=== PATIENT | female | born 1965 | race Caucasian/White ===

== ENCOUNTER 2023-04-10 20:09 | Emergency (ER) | payer OTHER, SELFPAY ==
[2023-04-10 20:58] VITALS: BP 133/86; PULSE 81; RESP 14; TEMP 36.4; O2SAT 100
--- NOTE | 2023-04-10 23:53 | ED.GENADULT ---
HPI - General Adult General Chief complaint: Wound/Laceration Stated complaint: Left index finger lac Time Seen by Provider: 04/10/23 22:12 Source: patient Mode of arrival: ambulatory Limitations: no limitations History of Present Illness HPI narrative: This is a 57-year-old female who presents to the ED with chief complaint of a left index finger laceration that occurred just prior to arrival. Patient was working in the kitchen cutting with a knife and accidentally cut towards herself to the index finger. Reports lot of bleeding at the time but that has since ceased. Denies numbness, weakness or any further sites of pain or injury. Tetanus up-to-date. Related Data Allergies Allergy/AdvReac Type Severity Reaction Status Date / Time Sulfa (Sulfonamide Allergy Mild Unknown Verified 04/10/23 22:10 Antibiotics) Bumble Bee Allergy Intermediate HIVES, Uncoded 04/16/16 19:16 SWELLING Review of Systems Review of Systems: All systems as dictated in HPI Exam Narrative: GENERAL: Well-appearing, well-nourished, and in no acute distress. HEAD: Normocephalic, atraumatic. EYES: PERRLA and EOMI. ENT: Nares clear, no rhinorrhea or epistaxis. Mucous membranes moist. Oropharynx without tonsillar hypertrophy exudate or other lesions. NECK: Supple. No adenopathy or masses. CHEST: No respiratory distress. Clear to auscultation. No wheezes rales or rhonchi HEART: Regular rate and rhythm. No murmur heard. Normal peripheral pulses. ABDOMEN: Soft, nontender, nondistended, normal active bowel sounds. MSK: Normal range of motion. No edema. SKIN: 1 cm superficial laceration to the left index finger, lateral. No current bleeding. Not contaminated. NEURO: Alert and oriented x3. No focal deficits. PSYCH: Normal mood and affect. Course Vital Signs Vital signs: Vital Signs Temperature 97.6 F 04/10/23 20:58 Pulse Rate 81 04/10/23 20:58 Respiratory Rate 14 04/10/23 20:58 Blood Pressure 133/86 04/10/23 20:58 Pulse Oximetry 100 04/10/23 20:58 Oxygen Delivery Room Air 04/10/23 20:58 Temperature 97.6 F 04/10/23 20:58 Pulse Rate 81 04/10/23 20:58 Respiratory Rate 14 04/10/23 20:58 Blood Pressure 133/86 04/10/23 20:58 Pulse Oximetry 100 04/10/23 20:58 Oxygen Delivery Room Air 04/10/23 20:58 Procedures Laceration Laceration 1: Date: 04/10/23 Time: 23:53 Site: hand Side (If applicable): left Size (cm): 1 Description: linear Depth: simple, single layer Local Anesthetic: none Pre-repair: wound explored and irrigated extensively ====== Skin Level ====== Skin layer closed with: dermabond ====== Subcutaneous Layer ====== ====== Muscle Layer ====== ====== Tendon Layer ====== Medical Decision Making MDM Narrative Medical decision making narrative: This is a 57-year-old female who presents to the ED with chief complaint of a laceration to the left index finger. Vitals are normal. Exam shows a very superficial 1 cm laceration to the finger. Bleeding controlled. Wound here in the department and closed with skin glue. Pt will be discharged in stable condition. Return precautions given and supportive measures discussed. Pt is understanding and agreeable with plan for discharge and follow-up with PCP. Vital Signs Vital Signs: Vital Signs Temperature 97.6 F 04/10/23 20:58 Pulse Rate 81 04/10/23 20:58 Respiratory Rate 14 04/10/23 20:58 Blood Pressure 133/86 04/10/23 20:58 Pulse Oximetry 100 04/10/23 20:58 Oxygen Delivery Room Air 04/10/23 20:58 Temperature 97.6 F 04/10/23 20:58 Pulse Rate 81 04/10/23 20:58 Respiratory Rate 14 04/10/23 20:58 Blood Pressure 133/86 04/10/23 20:58 Pulse Oximetry 100 04/10/23 20:58 Oxygen Delivery Room Air 04/10/23 20:58 Discharge Plan Discharge Clinical Impression: Laceration Patient Disposition: H
== END 2023-04-11 00:15 | disposition home or self-care (01) ==
PROVIDERS: Emergency Provider Physician Assistant; PCP Family Medicine
DX: S61.211A Laceration without foreign body of left index finger without damage to nail, initial encounter (principal); W26.0XXA Contact with knife, initial encounter
CPT/HCPCS: 12001; 99282

== ENCOUNTER 2025-02-27 15:00 | Outpatient (CLI) | payer OTHER, SELFPAY ==
--- NOTE | ~2025-02-27 | MM_ITS ---
EXAMINATION: screening [facility] BI w nelly INDICATION: Asymptomatic, referred for screening mammogram COMPARISON: None available TECHNIQUE: Digital Breast Tomosynthesis CC, MLO views of Both breasts were obtained with computer-aided detection to assist in interpretation of the study. FINDINGS: There are scattered areas of fibroglandular density. There is a group of microcalcifications in the outer central right breast at posterior third. In addition, there is a focal asymmetry seen in the inferior lateral right breast at anterior third. Elsewhere, there are no mammographic features of malignancy. IMPRESSION: 1. Right breast Incompletely characterized group of calcifications and focal asymmetry. 2. No evidence of malignancy in the Left breast. RECOMMENDATION: Right breast Diagnostic mammogram with true lateral, appropriate spot compression views and an ultrasound if needed. Diagnostic right mammography with appropriate magnification views. BI-RADS Category 0: Incomplete: Needs additional imaging evaluation. Reviewed, dictated and finalized at location B. IMPRESSION: 1. Right breast Incompletely characterized group of calcifications and focal a symmetry. 2. No evidence of malignancy in the Left breast. RECOMMENDATION: Right breast Diagnostic mammogram with true lateral, appropriate spot compressi on views and an ultrasound if needed. Diagnostic right mammography with appropriate magnification views. BI-RADS Category 0: Incomplete: Needs additional imaging evaluation.
--- OUTSIDE RECORDS SUMMARY | 2025-02-27 19:21 | XMS_ITS | Clinical Summary ---
Author Organization [facility] Address [address] [place] [address] Care Team Providers Care Morning Show Newscast Producer Name Role Phone Cathy Snell MD Unavailable [phone] Landry Gudino MD Primary Care Provider [phone] Source Comments [facility],non-owned Affiliates and Associated Physician Practices is amultiple site organization consisting of ambulatory clinics and hospital sitesin [place], [place], [place] and [place]. This disclosure is being madepursuant to the Care Everywhere program and may not contain all information available regarding this patient. Last updated 18.[facility] Allergies Active Allergy Reactions Criticality Noted Date Comments Sulfa Drugs Unknown 04/08/2009 Medications * Be aware that medications may not be up to date on this document. Alwaysverify current medications with the patient. acyclovir (ZOVIRAX) 400 MG tablet TAKE 1 TABLET BY MOUTH THREE TIMES DAILY FOR 5 DAYS NEEDED FOR SYMPTOMS 15 tablet 3 03/31/2020 Active Active Problems No known active problems Family History Medical History Relation Name Comments Hypertension Father Relation Name Status Comments Father Social History Tobacco Use Types Packs/Day Years Used Date Smoking Tobacco: Never Smokeless Tobacco: Never Alcohol Use Standard Drinks/Week Comments Yes 0 (1 standard drink = 0.6 oz pur e alcohol) Comments No Sex and Gender Information Value Date Recorded Sex Assigned at Not on file Legal Sex Female 6:28 AM SENIOR STORAGE ADMINISTRATOR Gender Identity Not on file Sexual Orientation Not on file Last Filed Vital Signs Vital Sign Reading Time Taken Comments Blood Pressure 128/71 03/31/2020 3:38 PM SENIOR STORAGE ADMINISTRATOR Pulse - - Temperature - - Respiratory Rate - - Oxygen Saturation - - Inhaled Oxygen Concentration - - Weight 66.7 kg (147 lb) 03/31/2020 3:38 PM SENIOR STORAGE ADMINISTRATOR Height 162.6 cm (5' 4) 02/20/2018 4:23 PM CDT Body Mass Index 25.23 02/20/2018 4:23 PM CDT Plan of Treatment Health Maintenance Due Date Last Done Comments COLOGUARD (AGES 45-75) - COLON CA SCREENING 1963 COLON MONITORING 1963 COLONOSCOPY - COLON CA SCREENING 1963 CT COLONOGRAPHY - COLON CA SCREENING 1963 Colorectal Cancer Screening 1963 FIT - COLON CA SCREENING 1963 FLEX SIG - COLON CA SCREENING 1963 LIPID TESTING 1963 HIV SCREENING 11/26/1978 HEPATITIS C SCREENING 11/22/1981 DTAP/TDAP/TD VACCINES (1 - Tdap) 11/26/1982 PNEUMOCOCCAL VACCINE 50+ (1 of 1 - PCV) 11/26/2013 ZOSTER VACCINE (1 of 2) 11/26/2013 MAMMOGRAM 02/21/2020 02/20/2018, 05/0 06/2015, 09/05/2014, Additional history exists DEPRESSION SCREENING 05/09/2024 COVID-19 VACCINE (1 - 2023- season) 2025 INFLUENZA VACCINE (#1) 2025 PAP with HPV 03/31/2025 03/31/2020 Respiratory Syncytial Virus (RSV) Vaccine Pt: or over 60 yrs (1 - 1-dose 75+ series) 11/26/2038 HEPATITIS B VACCINE Aged Out No longe r eligible based on patient's age to complete this topic HIB VACCINE Aged Out No longer eligi ble based on patient's age to complete this topic HPV VACCINE Aged Out No longer eligi ble based on patient's age to complete this topic MENINGOCOCCAL (Group B) VACCINE SHARED DECISION-MAKING Aged Out No longer eligible based on patient's age to complete this topic MENINGOCOCCAL GROUPS A/C/Y/W VACCINE Aged Out No longer eligible based on patient's age to complete this topic Procedures Procedure Name Priority Date/Time Associated Diagnosis Comments HPV DETECTION HIGH RISK SARAH Routine 03/31/2020 4:48 PM SENIOR STORAGE ADMINISTRATOR Well woman exam MAMMO BILAT SCREENING Routine 02/20/2018 3:49 PM CDT Breast cancer screening from Last 3 Months or Most Recently Relevant to Health Maintenance Results * HPV DETECTION HIGH RISK SARAH (03/31/2020 4:48 PM SENIOR STORAGE ADMINISTRATOR) High Risk Human Papilloma Result Not Detected Not Detected 04/07/2020 1:51 PM SENIOR STORAGE ADMINISTRATOR [facility] High Risk Human Papilloma Interp 04/07/2020 1:51 PM SENIOR STORAGE ADMINISTRATOR [facility] Comment:High Risk Human Benjie lloma Virus was Not Detected. Pathology/Cytolo gy MISCELLANEOUS SAMPLES / Unknown 03/31/2020 4:48 PM SENIOR STORAGE ADMINISTRATOR 04/01/2020 11:04 AM SENIOR STORAGE ADMINISTRATOR Narrative [facility] - 04/07/2020 1:51 PM SENIOR STORAGE ADMINISTRATOR Nucleic acid isolated from the specimen was analyzed with a nucleic acid amplification test (FDA approved Gen-Probe HPV Assay) to detect high risk human papilloma virus (Types: 16, 18, 31, 33, 35, 39, 45, 51, 52, 56, 58, 59, 66, and 68). The reference range is Not Detected. Comment: These test results should not be used as the sole basis for clinical assessment and treatment of patients. These results should always be correlated with other available data (cytology, histology, and clinical information). us Quynh Saldivar MD LAB - MICROBIOLOGY O RDERABLES Final Result [facility] [address] [place], [place] [address] [phone] * MAMMO BILAT SCREENING (02/20/2018 3:49 PM CDT) Anatomical Region Laterality Modality Breast Bilateral Mammography 02/21/2018 7:58 AM CDT Impressions 02/21/2018 9:29 AM CDT No mammographic evidence of malignancy in either breast. ASSESSMENT: BIRADS Category 1: Negative mammogram. RECOMMENDATION: Bilateral screening mammogram in one year. Thank you for allowing us to participate in the care of your patient. [facility] utilizes [employer] as a reminder system to notify patients of their next recommended mammogram. I, Roxi Abdi, have personally reviewed the images and I agree with this report. Reading Radiologist: Randa García MD on 02/21/2018 at 9:29 AM Narrative 02/21/2018 9:29 AM CDT EXAMINATION: Digital screening mammogram on 02/20/2018. Low-dose full-field digital breast tomosynthesis examination was performed with synthetic 2D images and 3D acquisitions. Computer assisted detection was utilized. PRIOR: Multiple prior mammograms, most recently 09/08/2015 and 09/05/2014. BREAST PARENCHYMAL DENSITY: There are scattered areas of fibroglandular density. FINDINGS: No suspicious masses, areas of architectural distortion or microcalcifications are evident on synthetic 2D mammogram or tomosynthesis images. There has been no significant interval change since the prior examination. Quynh Saldivar MD MAMMO ORDERABLES Fin al Result from Last 3 Months or Most Recently Relevant to Health Maintenance Insurance [place] [address] [facility] Care Teams Morning Show Newscast Producer Relationship Specialty Start Date End Date Cathy Snell MD [address] [place] [address] PCP - OBGYN Obstetrics and Gynecology 05/23/12 Landry Gudino MD [address] [place] [address] PCP - General Family Medicine 05/23/12
== END 2025-02-27 15:01 | disposition home or self-care (01) ==
LOC: ANHFOHIMG 15:02
PROVIDERS: PCP Family Medicine
DX: Z12.31 Encounter for screening mammogram for malignant neoplasm of breast (principal); R92.8 Other abnormal and inconclusive findings on diagnostic imaging of breast
CPT/HCPCS: 77063; 77067

== ENCOUNTER 2025-02-28 02:11 | Day surgery (SDC) | payer OTHER, SELFPAY ==
[2025-02-20 09:04] VITALS: BMI 25.3
--- OUTSIDE RECORDS SUMMARY | 2025-02-28 02:14 | XMS_ITS | Clinical Summary ---
Author Organization [facility] Address [address] [place] [address] Care Team Providers Care Lead Systems Developer Name Role Phone Cathy Snell MD Unavailable [phone] Landry Gudino MD Primary Care Provider [phone] [facility],non-owned Affiliates and Associated Physician Practices is amultiple site organization consisting of ambulatory clinics and hospital sitesin [place], [place], [place] and [place]. This disclosure is being madepursuant to the Care Everywhere program and may not contain all information available regarding this patient. Last updated 18.[facility] Allergies Active Allergy Reactions Criticality Noted Date [...] on file Legal Sex Female 6:28 AM EDGE CUTTER Gender Identity Not on file Sexual Orientation Not on file Last Filed Vital Signs Vital Sign Reading Time Taken Comments Blood Pressure 128/71 03/31/2020 3:38 PM EDGE CUTTER Pulse - - Temperature - - Respiratory Rate - - Oxygen Saturation - - Inhaled Oxygen Concentration - - Weight 66.7 kg (147 lb) 03/31/2020 3:38 PM EDGE CUTTER Height 162.6 cm (5' 4) 02/20/2018 4:23 [...] HIGH RISK SARAH Routine 03/31/2020 4:48 PM EDGE CUTTER Well woman exam MAMMO BILAT SCREENING Routine 02/20/2018 3:49 PM CDT Breast cancer screening from Last 3 Months or Most Recently Relevant to Health Maintenance Results * HPV DETECTION HIGH RISK SARAH (03/31/2020 4:48 PM EDGE CUTTER) High Risk Human Papilloma Result Not Detected Not Detected 04/07/2020 1:51 PM EDGE CUTTER [facility] High Risk Human Papilloma Interp 04/07/2020 1:51 PM EDGE CUTTER [facility] Comment:High Risk Human Benjie lloma Virus was Not Detected. Pathology/Cytolo gy MISCELLANEOUS SAMPLES / Unknown 03/31/2020 4:48 PM EDGE CUTTER 04/01/2020 11:04 AM EDGE CUTTER Narrative [facility] - 04/07/2020 1:51 PM EDGE CUTTER Nucleic acid isolated from the specimen was [...] LAB - MICROBIOLOGY O RDERABLES Final Result [facility] [address] [place], [place] [address] [phone] * MAMMO BILAT SCREENING (02/20/2018 3:49 PM CDT) Anatomical Region Laterality Modality Breast Bilateral Mammography 02/21/2018 7:58 AM CDT Impressions 02/21/2018 9:29 AM CDT No mammographic evidence of malignancy in either breast. ASSESSMENT: BIRADS Category 1: Negative mammogram. RECOMMENDATION: Bilateral screening mammogram in one year. Thank you for allowing us to participate in the care of your patient. [facility] utilizes [employer] as a reminder system to notify patients [...] to Health Maintenance [place] [address] [facility] Care Teams Lead Systems Developer Relationship Specialty Start Date End Date Cathy Snell MD [address] [place] [address] PCP - OBGYN Obstetrics and Gynecology 05/23/12 Landry Gudino MD [address] [place] [address] PCP - General Family Medicine 05/23/12
--- OUTSIDE RECORDS SUMMARY | 2025-02-28 02:14 | XMS_ITS | Data Portability ---
Author Organization [employer], [facility] Address [address] [place] [id number] Care Team Providers Care Dispatcher Service Name Role Phone MELIA WAGGONER Primary Care Provider Unavailabl e Assessment No assessment recorded. Plan of Treatment Reminders Order Date Submit Date Provider Last Modified By Organization Details Last Modified Time Details Appointments None record ed. Lab None record ed. Referral None record ed. Procedures None record ed. Surgeries None record ed. Imaging None record ed. Medication Orders None record ed. Patient TargetsNo targets recorded. Patient InstructionsNo instructions recorded. Reason for Referral None Reported. Problems No Known Problems Medical Equipment None Reported. Allergies Allergen ID Allergen Name Allergen Category Reaction Reaction Severity Criticality Documentation Date Start Date Code Code System Note Provider Name and Address Organization Details Recorded Time 65714 Substance with sulfonami de structure and antibacte rial mechanism of action (substanc e) medicatio n Not available Not available Not available 03/25/2020 [id number] [id number] SNOMED Cory kurtz [employer] 0 10:40:11 Medications Name Sig Start Date Stop Date Status Note LastModified by Organization Details LastModified Time neomycin-polym yxin-hydrocort 3.5 mg/mL-10,000 unit/mL-1 % ear solution INSTILL 5 DROPS IN AFFECTED EAR TID FOR 10 DAYS active Not Available Not Available No t Available prednisone 20 mg tablet TK 1 T PO BID FOR 5 DAYS active Not Available Not Available No t Available acyclovir 400 mg tablet TK 1 T PO TID FOR 5 DAYS PRF SYMPTOMS active Not Available Not Available No t Available ketorolac 10 mg tablet TK 1 T PO QID PRF PAIN active Not Available Not Available No t Available clotrimazole 1 % topical solution INT 2 TO 3 GTS MARVIN 2 TO 3 XD FOR 14 DAYS active Not Available Not Available No t Available epinephrine 0.3 mg/0.3 mL injection, auto-injector USE UTD PRN active Not Available Not Available No t Available Vitals Date Recorded Body height Body mass index (BMI) Body weight Heart rate Respiratory rate Body temperature Systolic And Diastolic Provider Name and Address Organization Details Last Updated DateTime 0 162.56 cm 24 kg/m2 20246.9 3 g 91 /min 17 /min 71 [degF] 138/91 mm[Hg] Cory Beck [employer] [facility] 0 10:39:50 Social History None recorded. Functional Status None recorded. Mental Status None recorded. Family History Nothing Reported. Medical History No medical history recorded. Gynecological HistoryNo gynecological history recorded. Obstetrics History GPAL:G 0 P 0 0 0 0 Past Encounters Encounter ID Performer Location Encounter Start Date Encounter Closed Date Diagnosis/Indication Diagnosis SNOMED-CT Code Diagnosis ICD10 Code Diagnosis IMO Codes Diagnosis Note [id number] Braxton Cunningham MD [facility] [address] [place] [address] 03/25/2020 10:26:02 03/25/2020 14:15:24 Pain in right knee [id number] 00263 M25.561 Health Concerns Section Related Observation LastModified by Organization Detai ls LastModified Time None Recorded Concern Status LastModified by Organization Details LastModified Time None Recorded Advance Directives Directive None Recorded Payers Insurance Date Sequence Insurance Name Policy Number Policy Tidwell Covered Member ID Tidwell Member ID Guarantor Name 05/14/2020 1 [facility] - GE - DOS PRIOR TO 2024 (PPO) [id number] Adrienne Rubalcava [id number] Adrienne Rubalcava OBGyn Episode No OBEpisode recorded.
[2025-02-28 06:33] VITALS: BP 135/91; PULSE 98; RESP 18; TEMP 36; O2SAT 99; BMI 25.6
[2025-02-28] MEDS: LACTATED RINGERS 1,000 ML 150 ML IV CONT (06:48)
--- NOTE | 2025-02-28 07:50 | P.HP_ITS ---
H&P: HPI History of Present Illness Date/Time: 02/28/25 07:50 Chief Complaint: Screening colonoscopy Narrative: This is the patient's 2nd colonoscopy. Ten years ago, the patient had an episode of diverticulitis and shortly after this, had a colonoscopy showing no polyps. There are no GI symptoms and there is no family history of colorectal cancer. Review of Systems Review of Systems: All systems reviewed & are unremarkable except as noted in HPI and below PMFSH Past Medical History Medical History (Updated 02/28/25 @ 07:51 by Luther Vann MD) Dupuytren contracture of both hands Social History Social History Smoking status: Never smoker Alcohol intake: current Drinks per week: 2 Alcohol use details: Beer Living arrangements: with family Spiritual care concerns: No Meds Home Medications and Allergies Home Medications ?Medication ?Instructions ?Recorded ?Confirmed ?Type epinephrine 0.3 mg/0.3 mL 0.3 mg (0.3 mL) IM ONCE #1 e a 09/26/24 02/20/25 Rx injection, auto-injector (EpiPen) Allergies Allergy/AdvReac Type Severity Reaction Status Date / Time Sulfa (Sulfonamide Allergy Mild Unknown Verified 02/28/25 06:37 Antibiotics) Bumble Bee Allergy Intermediate HIVES, Uncoded 09/26/24 10:33 SWELLING Vital Signs Vital Signs - 24 hr 02/28/25 06:33 Temperature 96.8 F L Pulse Rate 98 Respiratory Rate 18 Blood Pressure 135/91 H Pulse Oximetry 99 Oxygen Delivery Room Air Exam Const: General: cooperative and healthy appearing Resp: Effort & Inspection: normal respiratory effort and able to speak in complete sentences Auscultation: clear to auscultation bilaterally Cardio: Rate: regular rate Rhythm: regular rhythm GI: Inspection: normal to inspection GI Palp: No No hepatosplenomegaly present Auscultation: normal bowel sounds Rectal Exam: deferred Skin: General skin exam: normal color Psych: Appearance: grossly normal Mental Status: mental status grossly normal Assessment and Plan Assessment and plan (1) Encounter for screening colonoscopy: Code(s): Z12.11 - Encounter for screening for malignant neoplasm of colon Status: Acute Assessment and Plan: The patient is deemed a good candidate for the procedure. Consent signed. Will proceed.
--- NOTE | 2025-02-28 07:51 | WPDANESEPPF ---
Anes - Initial Pre Proc Eval Procedure: Operation Date: 02/28/25 08:00 Proposed Procedures p Screening Colonoscopy - Luther Vann MD Date/Time: 02/28/25 07:51 Surgeon: Luther Vann MD Pre Op Diagnosis: Personal history of colon polyps, unspecified Patient Data Age: 59 Gender: F Height: 1.65 m Weight: 69.8 kg Last Vital Signs Temp 36.0 C L 02/28/25 06:33 Pulse 98 02/28/25 06:33 Resp 18 02/28/25 06:33 BP 135/91 H 02/28/25 06:33 Pulse Ox 99 02/28/25 06:33 O2 Del Method Room Air 02/28/25 06:33 Allergies Allergy/AdvReac Type Severity Reaction Status Date / Time Sulfa (Sulfonamide Allergy Mild Unknown Verified 02/28/25 06:37 Antibiotics) Bumble Bee Allergy Intermediate HIVES, Uncoded 09/26/24 10:33 SWELLING Home Medications ?Medication ?Instructions ?Recorded ?Confirmed ?Type epinephrine 0.3 mg/0.3 mL 0.3 mg (0.3 mL) IM ONCE #1 ea 09/26/24 02/20/25 Rx injection, auto-injector (EpiPen) Patient hx anesthesia problems: none Family hx anesthesia problems: none Results Review: All pre-operative results and documents have been reviewed as part of the pre-operative evaluation. [facility] Past Medical History Medical History Dupuytren contracture of both hands Social History Social History Smoking status: Never smoker Alcohol intake: current Drinks per week: 2 Alcohol use details: Beer Living arrangements: with family Spiritual care concerns: No Anes - Eval Final PreProcedure Day of Procedure 02/28/25 07:51 Patient weight: normal Heart: regular rate and rhythm Lungs: clear to auscultation Airway: Mallampati scale class II Neurological: alert and oriented Last oral intake: >/= 8 hours ASA classification: I Emergent: no Anesthetic plan: proceed Anesthesia type and monitoring: general GIVS and standard monitoring Results Review: All pre-operative results and documents have been reviewed as part of the pre-operative evaluation. Informed Consent: The patient's anesthetic plan and its attendant risks and benefits were discussed with the patient/family/POA. Questions were solicited and answers provided to the satisfaction of the patient/family/POA.
[2025-02-28] MEDS: SIMETHICONE ORAL SUSPENSION 20 MG/0.3 ML 30 ML BOTTLE 0.6 ML IRRIGATION (08:02)
[2025-02-28 08:10] VITALS: BP 122/80; PULSE 95; RESP 19; O2SAT 100
[2025-02-28 08:20] VITALS: BP 109/65; PULSE 75; RESP 21; O2SAT 100
[2025-02-28 08:30] VITALS: BP 120/86; PULSE 72; RESP 15; O2SAT 100
== END 2025-02-28 08:35 | disposition home or self-care (01) ==
PROVIDERS: PCP Family Medicine; Visit Provider Internal Medicine Gastroenterology
PROC: 0DJD8ZZ Inspection of Lower Intestinal Tract, Via Natural or Artificial Opening Endoscopic (ICD-10-PCS; CPT 45378; principal; 2025-02-28 08:00)
DX: Z12.11 Encounter for screening for malignant neoplasm of colon (principal); K57.30 Diverticulosis of large intestine without perforation or abscess without bleeding; M72.0 Palmar fascial fibromatosis [Dupuytren]
CPT/HCPCS: 45378; J2704; J7120

== ENCOUNTER 2025-04-18 07:53 | Outpatient (CLI) | payer OTHER, SELFPAY ==
--- NOTE | ~2025-04-18 | MM_ITS ---
EXAMINATION: MM diagnostic silva RT w nelly HISTORY: Additional imaging TECHNIQUE: Craniocaudal and mediolateral oblique 3-D tomosynthesis images were obtained and synthetic 2-D images were generated. CAD analysis was submitted and interpreted. COMPARISON: February 27 BREAST PARENCHYMAL COMPOSITION: Not Dense: There are scattered areas of fibroglandular FINDINGS: No suspicious masses are seen. There is a group of calcifications in the posterior depth at approximately 10-11 o'clock in the posterior depth. They are faint and punctate. These span a distance of approximately 3 mm. These are indeterminate. No unexplained architectural distortion is seen. There are no skin or nipple abnormalities identified. There is no adenopathy seen on the images submitted. IMPRESSION: Calcifications as described for which stereotactic/tomographic guided core biopsy is recommended. BI-RADS 4 - Suspicious for malignancy. Tissue diagnosis is recommended. Reviewed, dictated and finalized at location B. COORDINATOR IMPRESSION: Calcifications as described for which stereotactic/tomographic guided core biop sy is recommended. BI-RADS 4 - Suspicious for malignancy. Tissue diagnosis is recommended.
== END 2025-04-18 07:54 | disposition home or self-care (01) ==
LOC: MICIMG 07:54
PROVIDERS: PCP Family Medicine
DX: R92.8 Other abnormal and inconclusive findings on diagnostic imaging of breast (principal)
CPT/HCPCS: 77061; 77065; G0279